=== PATIENT | male | born 1985 | race Hispanic/Latino ===

== ENCOUNTER 2022-01-26 21:27 | Emergency (ER) | payer OTHER ==
--- NOTE | 2022-01-26 22:01 | Emergency Department Report ---
ED Lower Extremity HPI - General Chief Complaint: Extremity Injury, Lower Stated Complaint: RT KNEE INJURY Time Seen by Provider: 01/26/22 21:54 Source: EMS Mode of arrival: Stretcher Limitations: No Limitations - History of Present Illness Initial Comments: 36 yo M with h/o right knee arthritis s/p injectable treatment who present with right knee pain that worsen after a fall tonight. 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 He was given Morphine en route by EMS. Bending the knee worsen pain. He rated the pain as 4/10 in severity after the initial pain medication treatment. No other modifying or associated factors reported. - Related Data Previous Rx's Medication Instructions Recorded Last Taken Type traMADoL [Ultram] 50 mg PO Q6HR PRN #14 tablet 12/19/15 Unknown Rx Ketorolac [Toradol] 10 mg PO Q6H PRN 5 Days #20 tab NS 01/26/22 Unknown Rx Allergies Allergy/AdvReac Type Severity Reaction Status Date / Time No Known Allergies Allergy Verified 12/19/15 14:45 ED Review of Systems ROS: Stated complaint: RT KNEE INJURY Other details as noted in HPI Comment: All other systems reviewed and negative Musculoskeletal: joint swelling, arthralgia, other (right knee pain and injury ) ED Past Medical Hx - Past Medical History Previous Medical History?: No - Surgical History Past Surgical History?: Yes Additional Surgical History: R knee surgery - Social History Smoking Status: Never Smoker Substance Use Type: None - Medications Home Medications: Home Medications Medication Instructions Recorded Confirmed Last Taken Type traMADoL [Ultram] 50 mg PO Q6HR PRN #14 tablet 12/19/15 Unknown Rx Ketorolac [Toradol] 10 mg PO Q6H PRN 5 Days #20 tab NS 01/26/22 Unknown Rx ED Physical Exam - General Limitations: No Limitations General appearance: alert, in no apparent distress, obese - Head Head exam: Present: atraumatic, normal inspection - Eye Eye exam: Present: normal appearance Pupils: Present: normal accommodation - ENT ENT exam: Present: normal exam, normal orophraynx - Neck Neck exam: Present: normal inspection, full ROM. Absent: tenderness - Respiratory Respiratory exam: Present: normal lung sounds bilaterally. Absent: respiratory distress, accessory muscle use - Cardiovascular Cardiovascular Exam: Present: regular rate, normal rhythm, normal heart sounds - GI/Abdominal GI/Abdominal exam: Present: soft, normal bowel sounds. Absent: distended, tenderness - Extremities Exam Extremities exam: Present: tenderness (anterior knee over the patella ), normal capillary refill. Absent: pedal edema, calf tenderness - Back Exam Back exam: Present: normal inspection. Absent: tenderness - Neurological Exam Neurological exam: Present: alert, oriented X3 - Psychiatric Psychiatric exam: Present: normal affect, normal mood - Skin Skin exam: Present: warm, normal color ED Course Vital Signs 01/26/22 21:35 Temperature 98.7 F Pulse Rate 92 H Respiratory 18 Rate Blood Pressure 130/80 O2 Sat by Pulse 96 Oximetry ED Lower Extremity MDM - Radiology Data XR right knee with no acute findings - Medical Decision Making here with fall and with history of arthritis in the right knee to begin with-- noted with anterior tenderness to palpation-- will go ahead and order xray to rule out fx or dislocation or patellar subluxation-- With no acute findings on the xray so this is likely knee joints strains-- Critical care attestation.: If time is entered above; I have spent that time in minutes in the direct care of this critically ill patient, excluding procedure time. ED Disposition Clinical Impression: Right anterior knee pain Strain of right knee Qualifiers: Encounter type: initial encounter Qualified Code(s): S86.911A - Strain of unspecified muscle(s) and tendon(s) at lower leg level, right leg, initial encounter Disposition: HOME / SELF CARE / HOMELESS Is pt being admited?: No Does the pt Need Aspirin: No Condition: Stable Instructions: How to Use Cold Therapy, [id number], Acute Knee Pain, Adult, [id number] Additional Instructions: Apply ice for 15-20 minutes every 2-4 hours as instructed Call and follow up with your Orthopedic in the next 1-2 weeks for progress Call or return to ED if your symptoms worsen Prescriptions: Ketorolac [Toradol] 10 mg PO Q6H PRN 5 Days #20 tab NS PRN Reason: Pain Time of Disposition: 23:10
--- NOTE | 2022-01-26 22:37 | XRay Report ---
RIGHT KNEE 4 VIEW(S) INDICATION / CLINICAL INFORMATION: fall with pain history of arthritis COMPARISON: None available. FINDINGS: No fracture, dislocation, or significant soft tissue abnormality is demonstrated. No radiopaque forei gn bodies are identified. IMPRESSION: 1.No evidence of acute osseous pathology. Signer Name: Edgardo Lozano II, MD Signed: 01/26/2022 10:32 PM Workstation Name: [id number]
[2022-01-26] MEDS ORDERED: HYDROmorphone 2 MG/1 ML INJ IV ONE (23:09)
[2022-01-26] MEDS ORDERED: fentaNYL 100 MCG/2 ML INJ IV ONE (23:09)
[2022-01-26] MEDS ORDERED: ONDANSETRON 4 MG/2 ML INJ ONE (23:19)
[2022-01-26] MEDS ORDERED: ONDANSETRON 4 MG/2 ML INJ IV ONE (23:52)
[2022-01-26 23:56] VITALS: BP 124/78
== END 2022-01-26 23:55 | disposition home or self-care (01) ==
LOC: ED 21:27
DX: S86.911A Strain of unspecified muscle(s) and tendon(s) at lower leg level, right leg, initial encounter (principal); M25.561 Pain in right knee; X58.XXXA Exposure to other specified factors, initial encounter; Y93.89 Activity, other specified; Y92.89 Other specified places as the place of occurrence of the external cause; Y99.8 Other external cause status
CPT/HCPCS: 73562; 96374; 96375; 99283; J1170; J2405; J3010